=== PATIENT | male | born 1950 | race Caucasian/White ===

== ENCOUNTER 2022-03-13 08:46 | Outpatient (CLI) | payer MEDICARE, OTHER, SELFPAY ==
--- NOTE | ~2022-03-13 | CT_ITS ---
Noncontrast CT scan of the lumbar spine CLINICAL HISTORY: Low back pain TECHNIQUE: Axial noncontrast images of the lumbar spine was performed. Sagittal and coronal reformatt ed images were constructed. Dose reduction technique was used on this scan by utilizing automated exp osure control and iterative reconstruction technique. FINDINGS: No fracture identified. Minimal grade 1 retrolisthesis of L5 over S1 is present. At L1-L2, there is no disc bulge herniation. There is minimal facet arthropathy. No spinal canal sten osis or neural foraminal narrowing. At L2-L3, there is mild disc bulge. Facet joint arthropathy and ligamentum flavum hypertrophy contrib alfred to bilateral moderate thecal sac compression. There is mild right neural foraminal narrowing. Lef t neural foramen preserved. At L3-L4, there is mild disc bulge. There is minimal ligamentum flavum hypertrophy. No charlee spinal c anal stenosis. There is mild right neural foraminal narrowing. Left neural foramen preserved. At L4-L5, advanced degenerative disc narrowing, with disc bulge and facet joint/ligamentum flavum hyp ertrophy. No charlee spinal canal stenosis. There is moderate bilateral neural foraminal narrowing. At L5-S1, there is advanced degenerative disc narrowing, with osteophyte formation posteriorly but no significant disc bulge/herniation. No charlee spinal canal stenosis. There is moderate bilateral neura l foraminal narrowing. Paravertebral soft tissues are unremarkable. IMPRESSION: Mild degenerative spondylosis, as detailed above. Probable multifactorial moderate thecal sac fito vy L2-L3. Multilevel neural foraminal narrowing, as detailed above. Minimal grade 1 retrolisthesis of L5 over S1. Reviewed, dictated and finalized at [facility]. 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 Probable multifactorial moder ate thecal sac compression L2-L3. Multilevel neural foraminal narrowing, as det татьяна above. Minimal grade 1 retrolisthesis of L5 over S1.
== END 2022-03-13 08:47 | disposition home or self-care (01) ==
PROVIDERS: PCP Family Medicine; Visit Provider Nurse Practitioner Family
DX: M54.59 Other low back pain (principal); M43.06 Spondylolysis, lumbar region
CPT/HCPCS: 72131

== ENCOUNTER 2023-01-11 06:39 | Outpatient (CLI) | payer MEDICARE, OTHER, SELFPAY ==
[2023-01-11 07:48] LABS: INR 1.1; Prothrombin Time 14.5 Seconds (11.1-14.7)
== END 2023-01-11 06:40 | disposition home or self-care (01) ==
LOC: ANHLAB 06:42
PROVIDERS: PCP Family Medicine; Visit Provider Pain Medicine Pain Medicine
DX: Z79.01 Long term (current) use of anticoagulants (principal)
CPT/HCPCS: 36415; 85610

== ENCOUNTER → 2023-05-02 10:45 | Outpatient (CLI) | payer MEDICARE, OTHER, SELFPAY ==
--- NOTE | ~2023-05-02 | CT_ITS ---
CT Scan of the Chest without Contrast: Clinical Indication: Hemoptysis Technique: Contiguous sections were acquired throughout the chest without intravenous contrast. Dose reduction technique was used on this scan by utilizing automated exposure control and iterative recon struction technique. The dose-length product (DLP) was 366.54 mGy-cm. Findings: Questionable mildly enlarged right hilar lymph node present. No other lymphadenopathy identified. Cor onary artery calcifications are present. No aortic aneurysm. No pericardial effusion. Small to moderate layering right pleural effusion present. There is somewhat masslike consolidation in the right lower lobe measuring approximate 7.5 cm in diam eter, with focal central probable cavitation. There is a 3.0 x 2.0 cm lesion in the right upper lobe, with probable pseudocavitation and somewhat bubbly/semisolid appearance (axial image 41). Images through the upper abdomen reveal no abnormalities. Impression: 7.5 cm masslike consolidation right lower lobe with focal area of presumed cavitation or necrosis. Th is is suspicious for carcinoma, although neoplasm, or less likely, rounded atelectasis, could possibl y have a similar appearance. Correlate with patient's and hematology. Consider tissue sampling to est ablish histologic diagnosis versus possibly short-term follow-up CT after any appropriate acute inter lona therapy. 3.0 x 2.0 cm somewhat bubbly/pseudocavitation lesion in the right upper lobe. 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 Consider tissue sampling and/or PET/CT to further evaluate this lesion. Questionable mildly enlarged right hilar lymph node. Evaluation suboptimal without IV contrast, as we ll as the aforementioned right lower lobe masslike lesion extending towards the right hilum. Consider contrast-enhanced chest CT to further evaluate as indicated. Small to moderate right pleural effusion. Reviewed, dictated and finalized at [facility]. [employer]TER Impression: 7.5 cm masslike consolidation right lower lobe with focal area of presumed cavi tation or necrosis. This is suspicious for carcinoma, although neoplasm, or les s likely, rounded atelectasis, could possibly have a similar appearance. Correl ate with patient's and hematology. Consider tissue sampling to establish histol ogic diagnosis versus possibly short-term follow-up CT after any appropriate ac alfred interval therapy. 3.0 x 2.0 cm somewhat bubbly/pseudocavitation lesion in the right upper lobe. R adiographic appearance suggests possibly bronchoalveolar cell carcinoma. Consid er tissue sampling and/or PET/CT to further evaluate this lesion. Questionable mildly enlarged right hilar lymph node. Evaluation suboptimal with out IV contrast, as well as the aforementioned right lower lobe masslike lesion extending towards the right hilum. Consider contrast-enhanced chest CT to furt her evaluate as indicated. Small to moderate right pleural effusion.
== END ==
PROVIDERS: PCP Family Medicine; Visit Provider Family Medicine
DX: R04.2 Hemoptysis (principal); F17.200 Nicotine dependence, unspecified, uncomplicated; R91.8 Other nonspecific abnormal finding of lung field; R59.0 Localized enlarged lymph nodes; J90 Pleural effusion, not elsewhere classified
CPT/HCPCS: 71250

== ENCOUNTER 2023-05-04 09:50 | Outpatient (NON) | payer MEDICARE, OTHER, SELFPAY ==
[2023-05-09 23:42] LABS: Calprotectin, Stool 225 mcg/g
== END 2023-05-04 09:51 | disposition home or self-care (01) ==
LOC: ANHLAB 09:51
PROVIDERS: PCP Family Medicine; Visit Provider Family Medicine
DX: R19.5 Other fecal abnormalities (principal)
CPT/HCPCS: 83993

== ENCOUNTER 2023-06-27 12:41 | Outpatient (CLI) | payer MEDICARE, OTHER, SELFPAY ==
[2023-06-27 13:26] LABS: Hematocrit 37.8 % (42.0-52.0); Mean Corpuscular HGB Conc 31.7 g/dl (32-36); Mean Corpuscular Volume 88.1 fl (80-100); Mean Platelet Volume 11.1 fl (7.4-10.4); Platelet Count Result 662 k/mm3 (150-375); Red Blood Count 4.29 M/mm3 (4.6-6.20); Red Cell Distribution Width 16.4 % (11.5-14.5)
[2023-06-27 13:51] LABS: Prothrombin Time 23.7 Seconds (11.1-14.7)
[2023-06-27 13:52] LABS: Partial Thromboplastin Time 57.7 Seconds (22.3-36.8)
[2023-06-27 20:40] LABS: Basophils Absolute Manual 0.44 K/mm3 (0.0-0.1); Basophils Percent Manual 2 % (0-1); Eosinophils Percent Manual 5 % (0-4); Lymphocytes Absolute Manual 1.98 K/mm3 (1.1-4.5); Monocytes Absolute Manual 0.44 K/mm3 (0.1-0.90); Monocytes Percent Manual 2 % (3-9); Neutrophils Percent Manual 82 % (46-73); Total Cells Counted 100
[2023-06-27 20:41] LABS: Hypochromasia 1+; Platelet Estimate Increased (Adequate); Schistocytes None Seen
[2023-06-27 20:42] LABS: Anisocytosis 2+
== END 2023-06-27 12:42 | disposition home or self-care (01) ==
PROVIDERS: PCP Family Medicine; Visit Provider Surgery
DX: C34.90 Malignant neoplasm of unspecified part of unspecified bronchus or lung (principal)
CPT/HCPCS: 36415; 85025; 85610; 85730

== ENCOUNTER 2023-06-30 01:00 | Day surgery (SDC) | payer MEDICARE, OTHER, SELFPAY ==
--- NOTE | 2023-06-24 11:03 | PC.NURSE ---
Report to the Outpatient Waiting Room, entrance under the green pavilion located off [address], at time __0800 on date __06/30/23 . Planned Procedure Time: __1000 . Time changes happen often and if your time is changed the preop area will call you the afternoon before. - You and your visitor will be asked to self-screen and do not enter if you have any COVID symptoms. - A mask is optional within the hospital at this time. Patients may have clear liquids (water, carbonated beverages, clear teas, apple juice) until 3 hours prior to surgery( 7 am) with a maximum of 20 ounces. - No food from midnight until time of surgery - Infants may have breast milk until 4 hours before surgery, infant formula 6 hours prior to surgery. - Children will be allowed to drink immediately following surgery. If applicable, please bring a bottle or sippy cup to assist with drinking. Juice, water, soda, and popsicles are readily available. For infants on formula, please bring formula the day of surgery. Pacifiers are allowed. Take the following medications with a SIP of water the morning of surgery: __AMLODIPINE,,METOPROLOL DO NOT STOP ANY OF YOUR OTHER PRESCRIPTION MEDICATIONS PRIOR TO SURGERY ?EXCEPT THE FOLLOWING Medications to discontinue per physician ___PT STATES WAS TOLD TO HOLD ASPIRIN AND WARFARIN_LAST DOSE 06/24/23 Please no make-up, nail macedonian, hairspray, perfume, deodorant, or body powder the day of surgery. No jewelry (including any body piercings) or valuables the day of surgery, leave them at home. Please take a shower or bath the night before, or the morning of, surgery with an antibacterial soap. Wear comfortable, loose fitting clothing. Children are encouraged to wear pajamas. - Jewelry must be removed prior to entering the operating room. Rings and piercings that are not removed may be cut off. - The hospital will not accept responsibility for valuables. - Please leave all valuables, including medications, at home the day of surgery. If you are going home after surgery, a licensed pharmacy delivery driver must drive you home. - NO public transportation without another adult if you receive anesthesia. - We recommend that an adult stay with you for 24 hours following discharge. - We also recommend that you do not drive, make important decision, drink alcoholic beverages, or take any drugs that were not prescribed by your health care provider for at least 24 hours after your discharge time. Follow any additional instructions given to you from your surgeon. If you or anyone in your household have experienced Covid symptoms in the past week, please notify your surgeon or the nurse liaison at the phone number below for possible testing. Telephone instructions given to __PATIENT and asked if any additional questions and then verbalized understanding. Patient advised to call surgeon office or pre surgery nurse liaison [phone] if any additional questions.
[2023-06-24 11:13] VITALS: BMI 24.1
--- NOTE | ~2023-06-30 | XR_ITS ---
EXAMINATION: XR fl guide central line place INDICATION: Port-A-Cath insertion TECHNIQUE: A single intraoperative fluoroscopic image is submitted for review. Total fluoroscopic jina e was 13.9 seconds. COMPARISON: None available FINDINGS: Fluoroscopic image demonstrates a left subclavian Port-A-Cath coursing beyond the right med ial margin of the image. Please refer to procedure note for full details. IMPRESSION: 1. Please refer to procedure note for full details. Reviewed, dictated and finalized at location F.
--- NOTE | ~2023-06-30 | XR_ITS ---
EXAMINATION: XR chest port-a-cath/central INDICATION: Port-A-Cath insertion TECHNIQUE: Portable AP chest at 1022 hours COMPARISON: CT, 05/02/2023 FINDINGS: A left subclavian Port-A-Cath has been inserted which ends with this tip in the distal supe rior vena cava. There is no pneumothorax. There is a moderate size right pleural effusion. There are airspace opacities right mid and lower lung zone. The heart size is normal. IMPRESSION: 1. Left subclavian Port-A-Cath insertion, no pneumothorax. 2. Moderate size right pleural effusion. 3. Airspace opacities of the right mid and lower lung zones, likely malignancy, atelectasis, and pneu monia. Reviewed, dictated and finalized at location F. IMPRESSION: 1. Left subclavian Port-A-Cath insertion, no pneumothorax. 2. Moderate size right pleural effusion. 3. Airspace opacities of the right mid and lower lung zones, likely malignancy, atelectasis, and pneumonia.
--- NOTE | 2023-06-30 07:40 | PM.IMHP ---
H&P: HPI History of Present Illness Date/Time: 06/30/23 07:40 Chief Complaint: right lung cancer Narrative: The patient is a 72-year-old male presenting with stage IV right-sided lung cancer. The patient is going to chemo radiation. The patient is here for port placement. The patient denies any previous central venous catheterization. Review of Systems Review of Systems: All systems reviewed & are unremarkable except as noted in HPI and below PMFSH Past Medical History Medical History Change in stool Surgical History Surgical History S/P epidural steroid injection Family History Family History Mother Patient's mother is Father Patient's father is Social History Social History Smoking packs per day: 1 Smoking cigarettes per day: 20.0 Years smoked: 53 Smoking pack-years: 53.00 Smoking status: Former smoker Tobacco type: cigarettes Smoking end date: 05/14/23 Alcohol intake: never Substance use: never Substance use type: does not use Do You Feel Safe in your Home?: Yes Lack of Transportation: No Lack of Food: Never True Current Housing: I Have Housing Concerned About Future Housing: No Difficulty Paying Gas/Electric Bills: No Difficulty Paying for Meds: No Currently Unemployed: No Education: Trade/Vocational Certificate Difficulty w/ Childcare or Family Care: No Living arrangements: with family Spiritual care concerns: No Meds Home Medications and Allergies Home Medications Medication Instructions Recorded Confirmed Type amlodipine 5 mg tablet 5 mg PO QAM 04/26/23 06/28/23 History atorvastatin 80 mg tablet 80 mg PO DAILY 04/26/23 06/28/23 History lisinopril 20 mg tablet 20 mg PO QAM 04/26/23 06/28/23 History metoprolol succinate 50 mg 50 mg PO QAM 04/26/23 06/28/23 History tablet,extended release 24 hr warfarin 5 mg tablet 5 mg PO DAILY 04/26/23 06/28/23 History nicotine 7 mg/24 hr daily 1 patch transdermal DAILY 06/24/23 06/28/23 History transdermal patch omeprazole magnesium 20 mg 20 mg PO DAILY 06/24/23 06/28/23 History tablet,delayed release (Prilosec OTC) hydrocodone 5 mg-acetaminophen 325 2 tablet PO Q6H PRN pain #180 tabs 06/28/23 Rx mg tablet zolpidem 10 mg tablet (Ambien) 10 mg PO QHS #30 tabs 06/28/23 06/28/23 Rx medical powered mobility scooter #1 ea 06/29/23 Rx Allergies Allergy/AdvReac Type Severity Reaction Status Date / Time Tetanus Vaccines and Toxoid Allergy Unknown Rash, Verified 06/28/23 13:46 REDNESS AT SITE ADHESIVE TAPE Allergy Mild SKIN Uncoded 06/28/23 13:46 IRRITATION Exam Const: General: cooperative, comfortable, no acute distress and ill appearing Neck: Neck: normal visual inspection, full ROM and no lymphadenopathy Chest: Chest palpation & inspection: normal inspection of the chest Resp: Auscultation: diminished lung sounds Cardio: Rate: regular rate Rhythm: regular rhythm GI: Inspection: normal to inspection Assessment and Plan Assessment and plan (1) Stage 4 lung cancer: Qualifiers: Laterality: right Qualified Code(s): C34.91 - Malignant neoplasm of unspecified part of right bronchus or lung Code(s): C34.90 - Malignant neoplasm of unspecified part of unspecified bronchus or lung Status: Acute Assessment and Plan: will set up port placement in the operating room
[2023-06-30 08:10] VITALS: BP 85/55; PULSE 96; RESP 18; TEMP 36.2; O2SAT 96; BMI 23.9
--- NOTE | 2023-06-30 08:46 | WPDANESEPPF ---
Anes - Initial Pre Proc Eval Procedure: Operation Date: 06/30/23 10:00 Proposed Procedures p Insertion Wyatt Cath - Nirali Taylor MD Date/Time: 06/30/23 08:46 Surgeon: Nirali Taylor MD Pre Op Diagnosis: malig neoplasm right lung Patient Data Age: 72 Gender: M Height: 1.85 m Weight: 83.05 kg Allergies Allergy/AdvReac Type Severity Reaction Status Date / Time Tetanus Vaccines and Toxoid Allergy Unknown Rash, Verified 06/28/23 13:46 REDNESS AT SITE ADHESIVE TAPE Allergy Mild SKIN Uncoded 06/28/23 13:46 IRRITATION Home Medications Medication Instructions Recorded Confirmed Type amlodipine 5 mg tablet 5 mg PO QAM 04/26/23 06/28/23 History atorvastatin 80 mg tablet 80 mg PO DAILY 04/26/23 06/28/23 History lisinopril 20 mg tablet 20 mg PO QAM 04/26/23 06/28/23 History metoprolol succinate 50 mg 50 mg PO QAM 04/26/23 06/28/23 History tablet,extended release 24 hr warfarin 5 mg tablet 5 mg PO DAILY 04/26/23 06/28/23 History nicotine 7 mg/24 hr daily 1 patch transdermal DAILY 06/24/23 06/28/23 History transdermal patch omeprazole magnesium 20 mg 20 mg PO DAILY 06/24/23 06/28/23 History tablet,delayed release (Prilosec OTC) hydrocodone 5 mg-acetaminophen 325 2 tablet PO Q6H PRN pain #180 tabs 06/28/23 Rx mg tablet zolpidem 10 mg tablet (Ambien) 10 mg PO QHS #30 tabs 06/28/23 06/28/23 Rx medical powered mobility scooter #1 ea 06/29/23 Rx Patient hx anesthesia problems: none Family hx anesthesia problems: none Results Review: All pre-operative results and documents have been reviewed as part of the pre-operative evaluation. [facility] Past Medical History Medical History Change in stool Surgical History Surgical History S/P epidural steroid injection Family History Family History Mother Patient's mother is Father Patient's father is Social History Social History Smoking packs per day: 1 Smoking cigarettes per day: 20.0 Years smoked: 53 Smoking pack-years: 53.00 Smoking status: Former smoker Tobacco type: cigarettes Smoking end date: 05/14/23 Alcohol intake: never Substance use: never Substance use type: does not use Do You Feel Safe in your Home?: Yes Lack of Transportation: No Lack of Food: Never True Current Housing: I Have Housing Concerned About Future Housing: No Difficulty Paying Gas/Electric Bills: No Difficulty Paying for Meds: No Currently Unemployed: No Education: Trade/Vocational Certificate Difficulty w/ Childcare or Family Care: No Living arrangements: with family Spiritual care concerns: No Anes - Eval Final PreProcedure Day of Procedure 06/30/23 08:46 Patient weight: normal Heart: regular rate and rhythm Lungs: clear to auscultation Airway: Mallampati scale class II Neurological: alert and oriented Last oral intake: >/= 8 hours ASA classification: III Emergent: no Anesthetic plan: proceed Anesthesia type and monitoring: general GIVS and standard monitoring Results Review: All pre-operative results and documents have been reviewed as part of the pre-operative evaluation. Informed Consent: The patient's anesthetic plan and its attendant risks and benefits were discussed with the patient/family/POA. Questions were solicited and answers provided to the satisfaction of the patient/family/POA.
[2023-06-30] MEDS: LACTATED RINGERS 1,000 ML 30 ML IV CONT (08:50)
--- NOTE | 2023-06-30 09:03 | SUR.PREOP ---
0845- Notified Dr. Cordon patient sustained a fall this AM and has soft BP 80's over 50's. Per Dr. Cordon bolus LR 500ML's in pre-op and will proceed. 902- Coagulation elevated and redraw sent to lab and notified Dr. Taylor awaiting results. Per Dr. Taylor will proceed with surgery no matter the results of blood draw.
[2023-06-30] MEDS: KETOROLAC 15 MG/ML VIAL (*BKC) IV PUSH (09:04)
[2023-06-30 09:22] LABS: INR 1.9; Prothrombin Time 22.6 Seconds (11.1-14.7)
[2023-06-30 09:23] LABS: Partial Thromboplastin Time 51.4 Seconds (22.3-36.8)
--- NOTE | 2023-06-30 09:33 | WPDHPUPDATE1 ---
History and Physical Update Update Date/Time: 06/30/23 09:33 History and Physical has been reviewed, including an updated exam of the patient. There are NO changes in the patient's condition. Risks, benefits, and alternatives have been discussed and questions answered. Patient agrees to proceed with procedure.
[2023-06-30] MEDS: ceFAZolin 2 GM/D5W 50 ML 2 GM/50 ML BAG IVPB (09:37)
[2023-06-30] MEDS: BUPIVACAINE/EPINEPHRINE 0.5% 30 ML VIAL INFILTRATE (10:03)
[2023-06-30] MEDS: HEPARIN SODIUM, PORCINE 10,000 UNITS/10 ML VIAL 4000 UNITS IV PUSH (10:04)
[2023-06-30] MEDS: HEPARIN SODIUM 5,000 UNITS/ML VIAL 5000 UNITS IRRIGATION (10:06)
--- NOTE | 2023-06-30 10:10 | W.PM.PROC2 ---
Procedure Note - Detailed Date of Procedure 06/30/23 Pre-op Diagnosis malig neoplasm right lung Post-op Diagnosis Same Procedure Performed placement of left subclavian venous access device under fluoroscopic guidance Surgeon Nirali Taylor MD Anesthesia MAC and Local Indications 72-year-old male with right lung cancer requiring chemo radiation Findings first stick L SCV Description of Procedure Patient was brought into the operating room and placed in the supine position. After adequate induction of mac anesthesia, the patient was prepped and draped in normal sterile fashion. Time-out was then done to verify the patient's identity, as well as the procedure being performed. I began by making a small incision in the left chest, I then gained access into the left subclavian vein with an 18 gauge needle. I then placed the guidewire into the vein and confirmed placement via fluoroscopic guidance. I then locally anesthetized the area in the left chest. I then enlarged the incision around the guidewire including making a subcutaneous pocket inferiorly to allow placement of the port itself. I then placed a dilating sheath over the guidewire into the left subclavian vein via sterile Seldinger technique. This was once again done and confirmed via fluoroscopic guidance. I then removed the dilator and the guidewire, now just leaving the sheath in the vein. I then fed the previously flushed catheter into the left subclavian vein under fluoroscopic guidance. At approximately 25 cm, the catheter was noted to be near the atrial caval junction. I then peeled away the sheath, now just leaving the catheter in the vein. I then was able to easily draw and flush from the catheter. The catheter was cut to fit and attached to the port itself. The port was placed into the previously made subcutaneous pocket and sutured in with 0 Ethibond suture. Final fluoroscopic view showed the termination of the catheter at the atrial caval junction with a nice smooth curvature back to the port itself. I was able to gain access to the port with a Langford needle and was able to easily draw and flush from the port. I then flushed 4 cc of a final heparin flush into the port. The incision was closed with 3 0 Vicryl suture in the subcutaneous tissue and the skin was closed with 4 O Monocryl subcuticular suture. Dermabond was then placed on wound. The patient tolerated the procedure well and will be sent to the recovery room in stable condition. Implants L SCV VAD Estimated Blood Loss 5 Drains No Packing No Pathology None sent Complications No immediate complications Condition Stable Disposition PACU [facility] Billing Surgery - Charge Forward: Surgery Billing
[2023-06-30 10:17] VITALS: BP 83/54; PULSE 82; O2SAT 93
[2023-06-30 10:30] VITALS: BP 98/57; PULSE 97; O2SAT 92
[2023-06-30 10:45] VITALS: BP 111/67; PULSE 98
== END 2023-06-30 11:15 | disposition home or self-care (01) ==
PROVIDERS: PCP Family Medicine; Visit Provider Surgery
PROC: (CPT 36561; principal; 2023-06-30 10:00)
DX: C34.91 Malignant neoplasm of unspecified part of right bronchus or lung (principal); Z79.01 Long term (current) use of anticoagulants; Z87.891 Personal history of nicotine dependence
CPT/HCPCS: 36561; 36415; 77001; 85610; 85730; C1788; J0690; J1644; J1885; J2371; J2704; J3010; J7030; J7120

== ENCOUNTER 2023-07-07 10:54 | Outpatient (CLI) | payer MEDICARE, SELFPAY ==
[2023-06-28 13:56] VITALS: BMI 24.7
--- NOTE | 2023-06-28 13:57 | PC.NURSE ---
Pre Radiology instructions Report to the outpatient lulu viramontes on date _07/07/23____ at time _11:00AM for procedure Time: _1:00PM___ YOU MAY BE MONITORED AT HOSPITAL FOR UP TO 4 HOURS AFTER YOUR PROCEDURE. A visitor will be allowed to accompany the patient into the hospital. You and your visitor will be asked to self-screen and do not enter if you have any COVID symptoms. A mask is OPTIONAL within the hospital. Patients are to have no food or drink 6 hours prior to procedure time Driving will be restricted after the procedure, you must have a person to drive you home. Labs will be drawn in preop area and once reviewed, you will be taken to radiology area for procedure. When the procedure is completed, you will be taken to outpatient where you will be monitored for several hours. You may have one visitor in this area. Other than holding anti-coagulants, patient may take other medication(s) as scheduled. Prior to your appointment date patients are instructed to hold anti-coagulants after discussing with ordering provider to stop. If unable to discontinue anti-coagulants please notify radiologist. ? No aspirin or warfarin (Coumadin) for 7 days prior to the procedure. ? No clopidogrel (Plavix), ticagrelor (Brilinta), prasugrel (Effient) or dabigatran (Pradaxa) for 5 days prior to the procedure. ? No rivaroxaban (Xarelto), apixaban (Eliquis), dipyridamole (Aggrenox or Persantine) or cilostazol (Pletal) for 2 days prior to the procedure. Medications to discontinue per physician: __COUMADIN 7 DAYS PRE-OP Date to take last dose: __06/29/23 Please leave all valuables, including medications, at home the day of procedure. The hospital will not accept responsibility for valuables. Wear comfortable, loose fitting clothing.? Follow any additional instructions given to you from ordering provider. Telephone instructions given to ___PATIENT and asked if any additional questions and then verbalized understanding. Patient advised to call scheduling provider office or registration scheduling [phone] if any additional questions.
[2023-07-07] VITALS (7 sets, daily range): BP systolic 114–135; BP diastolic 70–92; PULSE 70–91; RESP 16–20; TEMP 36.1; O2SAT 97
--- NOTE | ~2023-07-07 | US_ITS ---
EXAMINATION: US thoracentesis DATE: 07/07/2023 14:25 INDICATION: pleural effusion TECHNIQUE: The procedure and its risks, benefits, and alternatives were discussed with the patient. P otential risks discussed included bleeding, infection, and pneumothorax. The patient understood the r isks and agreed to proceed. The skin was prepped and draped in sterile fashion. 1% lidocaine was used for local anesthesia. Under ultrasound guidance, a 5 Fr catheter with trochar was advanced into the right pleural effusion. Fluid was aspirated. The catheter was removed, and a dressing was applied. Th ere were no immediate complications. FINDINGS: Ultrasound images demonstrate a right pleural effusion and the catheter within the fluid. IMPRESSION: 1. Successful ultrasound-guided thoracentesis yielding 1000 mL of red-brown fluid. Reviewed, dictated and finalized at location A. IMPRESSION: 1. Successful ultrasound-guided thoracentesis yielding 1000 mL of red-brown fl uid.
--- NOTE | ~2023-07-07 | XR_ITS ---
EXAMINATION: [id number] DATE: 07/07/2023 14:13 INDICATION: Right pleural effusion status post thoracentesis. TECHNIQUE: A single frontal view of the chest was obtained. COMPARISON: Chest CT 05/02/2023, chest single view 06/30/2023 FINDINGS: There is volume loss of right hemithorax. There is a large right pleural effusion. There ar e airspace opacities in right lung base. No pneumothorax. The heart size is normal. There is a left s ubclavian port with tip in superior vena cava. IMPRESSION: 1. Large right pleural effusion with improvement status post thoracentesis. 2. Airspace opacities at right lung base, likely a combination of malignancy and atelectasis. Pneumon ia cannot be excluded. Reviewed, dictated and finalized at location A. IMPRESSION: 1. Large right pleural effusion with improvement status post thoracentesis. 2. Airspace opacities at right lung base, likely a combination of malignancy an d atelectasis. Pneumonia cannot be excluded.
[2023-07-07 12:09] LABS: Mean Platelet Volume 11.3 fl (7.4-10.4); Platelet Count Result 512 k/mm3 (150-375)
[2023-07-07 12:11] LABS: INR 1.8; Prothrombin Time 21.9 Seconds (11.1-14.7)
== END 2023-07-07 16:11 | disposition home or self-care (01) ==
PROVIDERS: PCP Family Medicine; Referring Provider Internal Medicine Hematology & Oncology; Visit Provider Radiology Diagnostic Radiology
DX: J90 Pleural effusion, not elsewhere classified (principal)
CPT/HCPCS: 32555; 36415; 77387; 77412; 85049; 85610; 86480; 88108; 88305

== ENCOUNTER 2023-07-11 09:30 | Outpatient (RCR) | payer MEDICARE, OTHER, SELFPAY ==
--- NOTE | 2023-06-17 08:53 | PHAR ---
Addendum entered by David Warner, PharmD 07/04/23 12:07: Biosimilar substitution per protocol: NEULASTA will be subbed to FULPHILA (PEGFILGRASTIM-JMDB) (BIOCON). Patient will be notified of substitution by nurse during education or at their first treatment. Original Note: Biosimilar substitution per protocol: NEULASTA will be subbed to FYLNETRA(PEGFILGRASTIM-PBBK) (AMNEAL). Patient will be notified of substitution by nurse during education or at their first treatment.
[2023-06-17 17:15] LABS: Hepatitis B Surface Antigen Negative (Negative)
[2023-06-20 12:54] LABS: NIL 0.01 IU/mL; Quantiferon TB Plus, 1T INDETERMINATE (NEGATIVE)
[2023-07-09 15:08] LABS: NIL 0.02 IU/mL; Quantiferon TB Plus, 1T NEGATIVE (NEGATIVE)
[2023-07-11 08:29] LABS: Basophils Percent Auto 0.2 % (0.2-1.2); Hematocrit 33.4 % (42.0-52.0); Hemoglobin 10.8 g/dL (14.0-18.0); Immature Granulocyte Absolute 0.22 K/mm3 (0.00-0.031); Immature Granulocyte Percent A 0.8 % (0-0.5); Lymphocytes Percent Auto 2.7 % (18.3-44.2); Mean Corpuscular HGB Conc 32.3 g/dl (32-36); Mean Corpuscular Volume 86.5 fl (80-100); Mean Platelet Volume 11.4 fl (7.4-10.4); Monocytes Absolute Auto 0.4 K/mm3 (0.1-0.6); Monocytes Percent Auto 1.7 % (2.6-8.5); Neutrophils Absolute Auto 24.5 K/mm3 (1.3-6.7); Neutrophils Percent Auto 94.6 % (45.5-73.1); Platelet Count Result 561 k/mm3 (150-375); Red Blood Count 3.86 M/mm3 (4.6-6.20); Red Cell Distribution Width 16.8 % (11.5-14.5); White Blood Count 25.9 K/mm3 (4.5-10.0)
[2023-07-11 08:35] LABS: Blood Urea Nitrogen 16 mg/dL (8-26); Carbon Dioxide 26 mmol/L (22-30); Chloride 103 mmol/L (98-109); Estimated Glomerular Filt Rate > 60; Glucose 191 mg/dL (70-105); Potassium 4.2 mmol/L (3.5-4.9); Sodium 140 mmol/L (138-146)
[2023-07-11 09:13] LABS: Alanine Aminotransferase 29 U/L (6-50); Albumin Level 2.9 g/dL (3.5-5.1); Alkaline Phosphatase 592 U/L (38-126); Anion Gap 6 mmol/L (4-12); Aspartate Amino Transferase 51 U/L (17-59); Bilirubin,Total 0.6 mg/dL (0.2-1.3); Blood Urea Nitrogen 18 mg/dL (9-20); Calcium 10.7 mg/dL (8.4-10.2); Carbon Dioxide 26 mmol/L (22-30); Chloride 106 mmol/L (98-107); Estimated Glomerular Filt Rate > 60; Glucose 196 mg/dL (65-110); Magnesium 1.9 mg/dL (1.6-2.3); Potassium 4.1 mmol/L (3.4-5.0); Sodium 138 mmol/L (137-145)
[2023-07-11 09:20] VITALS: BP 133/69; PULSE 91; RESP 18; TEMP 36.4; O2SAT 95
[2023-07-11] MEDS: PEMBROLIZUMAB 200 MG in SODIUM CHLORIDE 0.9% IV 100 ML 216 MG IVPB (09:55)
[2023-07-11] MEDS: PALONOSETRON HCL 0.25 MG/5 ML VIAL IV PUSH (10:43)
[2023-07-11] MEDS: FAMOTIDINE 20 MG/2 ML VIAL IV PUSH (10:43)
[2023-07-11] MEDS: diphenhydrAMINE HCl INJ 50 MG/ML VIAL 25 MG IV PUSH (10:45)
[2023-07-11] MEDS: OLANZapine DISPERTAB 5 MG PO (10:47)
[2023-07-11] MEDS: FOSAPREPITANT DIMEGLUMINE 150 MG in SODIUM CHLORIDE 0.9% IV 150 ML 300 MG IVPB (10:48)
[2023-07-11 15:49] VITALS: BP 107/59
[2023-07-11] MEDS: HEPARIN SODIUM LOCK FLUSH 500 UNITS/5 ML SYRINGE IV PUSH (15:50)
--- NOTE | 2023-07-12 15:31 | PHAR ---
Calhoun stimulating factor was held due to absolute neutrophil count over 8,000 per standing order. ANC over 20K
== END 2023-07-18 08:21 ==
LOC: AMCINF 09:30
PROVIDERS: PCP Family Medicine; Visit Provider Internal Medicine Hematology & Oncology
DX: Z51.11 Encounter for antineoplastic chemotherapy (principal); C34.11 Malignant neoplasm of upper lobe, right bronchus or lung; J91.0 Malignant pleural effusion; I10 Essential (primary) hypertension; I25.10 Atherosclerotic heart disease of native coronary artery without angina pectoris; I25.2 Old myocardial infarction; I48.91 Unspecified atrial fibrillation; E78.5 Hyperlipidemia, unspecified; Z95.5 Presence of coronary angioplasty implant and graft; Z87.891 Personal history of nicotine dependence
CPT/HCPCS: 36415; 80047; 80053; 83735; 85025; 86480; 87340; 96367; 96368; 96375; 96413; 96415; 96417; A9270; J1100; J1200; J1453; J2469; J7040; J7060; J9045; J9267; J9271

== ENCOUNTER 2023-07-14 00:46 | Inpatient (IN) | payer MEDICARE, OTHER, SELFPAY ==
[2023-07-14] VITALS (21 sets, daily range): BP systolic 79–124; BP diastolic 45–94; PULSE 101–142; RESP 17–26; TEMP 35.9–36.3; O2SAT 90–95
--- NOTE | ~2023-07-14 | XR_ITS ---
Clinical Indication: Shortness of breath, lung cancer PA and lateral views of the chest: Comparison: 07/07/2023 Findings: Left-sided Mediport is in place. Moderate to large right pleural effusion is similar to manuel or exam. Minimal haziness left lung base is nonspecific.. Cardiomediastinal silhouette is within nor mal limits. Bones and soft tissues are unremarkable. Impression: Moderate to large right pleural effusion, unchanged. Minimal haziness left lung base, nonspecific. Correlate for minimal pulmonary edema/atelectasis, or p ossibly pneumonia. Left-sided Mediport in place. Reviewed, dictated and finalized at location M. Impression: Moderate to large right pleural effusion, unchanged. Minimal haziness left lung base, nonspecific. Correlate for minimal pulmonary e rica/atelectasis, or possibly pneumonia. Left-sided Mediport in place.
--- NOTE | ~2023-07-14 | CT_ITS ---
Clinical Indication: Shortness of breath, abdominal pain CT Scan of the Chest, Abdomen, and Pelvis with Contrast: Technique: Contiguous sections were acquired throughout the chest, abdomen, and pelvis after intraven ous administration of 100 cc of Omnipaque 350. Dose reduction technique was used on this scan by adilene kaye automated exposure control and iterative reconstruction technique. The dose-length product (DL P) was 1743.32 mGy-cm. COMPARISON: 05/02/2023 Findings: There is no evidence of any significant mediastinal, hilar or axillary lymphadenopathy. No pulmonary embolus identified. No aortic aneurysm.. No pericardial effusion. Esophagus is mildly dilated and flu id-filled. No left pleural effusion. Left lung is clear, aside from minimal dependent atelectatic change, less l ikely pneumonia. Large right pleural effusion is present. There is complete right lower lobe atelectasis with associat ed probable centrally necrotic right infrahilar/right lower lobe mass measuring approximately 7.0 x 6 .1 x 9.3 cm (series 5 image 13, series 606 image 72 for example). This lesion probably invades throug h the diaphragm into the adjacent liver. There are 2 smaller broad-based present metastatic lesions i n the right lung base, best seen on series 5 images 12 and 18, measuring 1.7 cm and 3.2 cm in size re spectively. There is an additional smaller adjacent metastasis at the medial right lung base measurin g 2.5 cm (series 5 image 33).. There is partial right upper lobe atelectatic change, though underlyin g mass not completely excluded. The liver, spleen, pancreas, gallbladder, adrenals and kidneys are otherwise within normal limits. Th ere are atherosclerotic calcifications of the aorta. No lymphadenopathy. There is marked distention of the stomach, with questionable intraluminal mass at the gastric antrum/ first portion of the duodenum (axial image 57 for example).. There is inflammatory change and fluid t racking into the right lower quadrant and along the right paracolic gutter, extending probably from t he pancreatic head region. Urinary bladder is unremarkable. Prostate gland and seminal vesicles are unremarkable. There is infil tration of presacral soft tissues, nonspecific. Impression: Dominant right lower lateral/right infrahilar neoplastic mass is progressed from prior exam, now isma uring approximately 7.0 x 6.1 x 9.3 cm in size, with invasion through the diaphragm into the adjacent liver. There are multiple pleural-based metastases at the right lung base, as detailed above, not cl early present on prior noncontrast CT. Large right pleural effusion with complete right lower lobe atelectasis. Heterogeneous mass/nodule se en in the right upper lobe previously is not well appreciated on the current exam, though it may be o bscured by atelectatic change and effusion. Mild left basilar atelectatic change versus possibly pneumonia. No pulmonary embolus. Marked gastric distention and dilated esophagus. Suspected intraluminal/mucosal mass at the gastric a ntrum/first portion of the duodenum. Metastatic lesion or other mass is possible, resulting in appear ance suggestive of gastric outlet obstruction. Endoscopy or upper GI series advised to further evalua te. Fluid and inflammatory change at the right lower quadrant tracking along the right paracolic gutter t owards the pancreatic head. Appearance suggests acute pancreatitis. Other inflammatory process is not excluded, though there is no distinct bowel wall thickening. Normal appendix present. Reviewed, dictated and finalized at location M. Impression: Dominant right lower lateral/right infrahilar neoplastic mass is progressed fro m prior exam, now measuring approximately 7.0 x 6.1 x 9.3 cm in size, with inva vy through
--- NOTE | 2023-07-14 01:55 | ECG_ITS ---
SEE SCANNED COPY FOR CONFIRMED REPORT MTDD
--- NOTE | 2023-07-14 02:09 | PC.NURSE ---
Pt to xray at this time.
[2023-07-14 02:10] LABS: Basophils Absolute Auto 0.1 K/mm3 (0.0-0.1); Basophils Percent Auto 0.3 % (0.2-1.2); Hematocrit 35.9 % (42.0-52.0); Hemoglobin 11.5 g/dL (14.0-18.0); Immature Granulocyte Absolute 0.92 K/mm3 (0.00-0.031); Immature Granulocyte Percent A 2.2 % (0-0.5); Lymphocytes Absolute Auto 0.28 K/mm3 (0.9-3.2); Lymphocytes Percent Auto 0.7 % (18.3-44.2); Mean Corpuscular Hemoglobin 27.8 pg (26-34); Mean Corpuscular Volume 86.7 fl (80-100); Mean Platelet Volume 12.4 fl (7.4-10.4); Monocytes Absolute Auto 0.2 K/mm3 (0.1-0.6); Monocytes Percent Auto 0.5 % (2.6-8.5); Neutrophils Absolute Auto 40.4 K/mm3 (1.3-6.7); Neutrophils Percent Auto 96.3 % (45.5-73.1); Platelet Count Result 461 k/mm3 (150-375); Red Blood Count 4.14 M/mm3 (4.6-6.20); Red Cell Distribution Width 17.3 % (11.5-14.5); White Blood Count 41.9 K/mm3 (4.5-10.0)
[2023-07-14] MEDS: ONDANSETRON INJ 4 MG/2 ML VIAL IV PUSH (02:17)
[2023-07-14] MEDS: MORPHINE SULFATE (*CRX) 4 MG/ML INJ IV PUSH ×3 (02:18→05:05)
[2023-07-14 02:24] LABS: Magnesium 1.9 mg/dL (1.6-2.3)
[2023-07-14 02:26] LABS: Alanine Aminotransferase 61 U/L (6-50); Albumin Level 3.1 g/dL (3.5-5.1); Alkaline Phosphatase 560 U/L (38-126); Anion Gap 8 mmol/L (4-12); Aspartate Amino Transferase 134 U/L (17-59); Bilirubin,Total 0.9 mg/dL (0.2-1.3); Blood Urea Nitrogen 64 mg/dL (9-20); Calcium 9.3 mg/dL (8.4-10.2); Carbon Dioxide 26 mmol/L (22-30); Chloride 104 mmol/L (98-107); Estimated CRCL calculation 45 ml/min; Estimated Glomerular Filt Rate 46; Glucose 186 mg/dL (65-110); Potassium 5.3 mmol/L (3.4-5.0); Sodium 138 mmol/L (137-145)
[2023-07-14 02:29] LABS: Anisocytosis 1+; Ovalocytes 1+; Platelet Estimate Increased (Adequate); Poikilocytosis 1+
[2023-07-14 02:30] LABS: Burr Cells 1+; Schistocytes Rare
[2023-07-14 02:33] LABS: INR 1.4; Prothrombin Time 18.3 Seconds (11.1-14.7)
[2023-07-14 02:33] LABS: Alveolar/Arterial O2 Gradient 53.7 mmHg; Base Excess ABG -1.2 mEq/l (+/-2.0); Fractional Inspired Oxygen 21 %; HCO3 ABG 21.9 mEq/l (22.0-26.0); Oxygen Content ABG 14.7 %vol (16.0-22.0); Oxyhemoglobin 87.9 % THb (90.0-100.0); PCO2 ABG 31.4 mmHg (35.0-45.0); PO2 ABG 58.4 mmHg (80.0-100.0); PO2 FiO2 Ratio Arterial Blood 2.78 %; Total Hemoglobin 11.9 g/dL (12.0-18.0); pH ABG 7.461 (7.350-7.450)
[2023-07-14 02:34] LABS: Partial Thromboplastin Time 38.2 Seconds (22.3-36.8)
[2023-07-14 02:34] LABS: Modified Allen's Test Pass; Site Drawn RIGHT RADIAL
[2023-07-14 02:44] LABS: Procalcitonin 0.1 ng/mL
[2023-07-14 02:47] LABS: NT Pro B Type Natriuretic Pept 741 pg/mL (19.9-100)
[2023-07-14 03:22] LABS: Lactic Acid Reflex 3.2 mmol/L (0.7-2.0)
[2023-07-14 03:42] LABS: Influenza A QL RT-PCR Negative (Negative); Influenza B QL RT-PCR Negative (Negative); RSV RNA, RT-PCR Negative (Negative); SARS-CoV-2 RNA PCR Negative (Negative)
--- NOTE | 2023-07-14 05:25 | ED.GENADULT ---
HPI - General Adult General Chief complaint: Shortness of Breath/Dyspnea Stated complaint: pain with inspiration, right side pain Time Seen by Provider: 07/14/23 01:56 History of Present Illness HPI narrative: patient 72-year-old gentleman who presents emergency department with chief complaint of shortness of breath. Abdominal pain patient has prior history of atrial fibrillation he patient's history of stage IV lung cancer and has had pleural effusions on the right side the patient has had chemo on Tuesday and last radiation was in the morning patient reports that he has got weakness in his body reports that he has abdominal discomfort and pain shortness of breath. The patient reports that this got significantly worse the patient recently had about a L of fluid removed from his right lung Related Data Home Medications Medication Instructions Recorded Confirmed amlodipine 5 mg tablet 5 mg PO QA 04/26/23 07/12/23 atorvastatin 80 mg tablet 80 mg PO DAILY 04/26/23 07/12/23 lisinopril 20 mg tablet 20 mg PO QA 04/26/23 07/12/23 metoprolol succinate 50 mg 50 mg PO [facility] 04/26/23 07/12/23 tablet,extended release 24 hr warfarin 5 mg tablet 5 mg PO DAILY 04/26/23 07/12/23 omeprazole magnesium 20 mg 20 mg PO DAILY 06/24/23 07/12/23 tablet,delayed release (Prilosec OTC) ondansetron 8 mg disintegrating 8 mg PO Q8H PRN Nausea And Vomiting 07/05/23 07/12/23 tablet prochlorperazine maleate 10 mg 10 mg PO Q6H PRN Nausea And 07/05/23 07/12/23 tablet (Compazine) Vomiting Allergies Allergy/AdvReac Type Severity Reaction Status Date / Time Tetanus Vaccines and Toxoid Allergy Unknown Rash, Verified 07/12/23 09:36 REDNESS AT SITE ADHESIVE TAPE Allergy Mild SKIN Uncoded 07/12/23 09:36 IRRITATION Review of Systems Review of Systems: A 10 system review of systems was completed on the patient and is negative except for what is stated in the HPI. Nursing and ancillary documentation was reviewed. [facility] Past Medical History Medical History Change in stool Surgical History Surgical History S/P epidural steroid injection Family History Family History Mother Patient's mother is Father Patient's father is Social History Social History Smoking packs per day: 1 Smoking cigarettes per day: 20.0 Years smoked: 53 Smoking pack-years: 53.00 Smoking status: Former smoker Tobacco type: cigarettes Smoking end date: 05/14/23 Alcohol intake: never Substance use: never Substance use type: does not use Do You Feel Safe in your Home?: Yes Lack of Transportation: No Lack of Food: Never True Current Housing: I Have Housing Concerned About Future Housing: No Difficulty Paying Gas/Electric Bills: No Difficulty Paying for Meds: No Currently Unemployed: No Education: Trade/Vocational Certificate Difficulty w/ Childcare or Family Care: No Living arrangements: with family Spiritual care concerns: No Exam Narrative: GENERAL: Well-appearing, well-nourished, and in no acute distress. HEAD: Normocephalic, atraumatic. EYES: PERRLA and EOMI. ENT: Nares clear, no rhinorrhea or epistaxis. Mucous membranes moist. NECK: Supple. CHEST: diminished breath sounds in the right. No respiratory distress. HEART: Regular rate and rhythm. No murmur heard. Normal peripheral pulses. ABDOMEN: Soft, nontender, nondistended, normal active bowel sounds. EXTREMITIES: Normal range of motion. No edema. SKIN: Warm, dry, no rash. NEURO: No focal deficits. Alert and oriented x3. PSYCH: Normal mood and affect. Course Vital Signs Vital signs: Vital Signs Temperature 36.3 C L 07/14/23 00:47 Pulse Ra
[2023-07-14 05:50] LABS: Troponin I 0.012 ng/mL (0.000-0.034)
[2023-07-14 06:04] LABS: Reflex Lactic Acid Yes or No Add Lactic
[2023-07-14] MEDS: dilTIAZem HCl INJ 25 MG/5 ML VIAL 10 MG IV PUSH (06:20)
[2023-07-14 06:28] LABS: Appearance Urine Cloudy (Clear); Bacteria Urine None Seen /hpf; Bilirubin Urine 1+ (Negative); Blood Urine Negative (Negative); Color Urine Dark Yellow (Yellow); Glucose Urine UA Negative (Negative); Granular Casts Urine Present /lpf; Hyaline Casts Urine Present /lpf; Ketones Urine Trace mg/dL (Negative); Leukocyte Esterase Ur Trace LEU/UL (Negative); Nitrate Urine Negative (Negative); Non Pathogenic Casts >20; Protein Urine 1+ mg/dL (Negative); RBC Urine 0-2 /hpf (0-2); Spermatozoa Urine Present; Squamous Epithelial Cell Urine Occasional /hpf (Few)
[2023-07-14 06:37] LABS: Specific Grav Ur 1.039 (1.001-1.035)
[2023-07-14 06:41] LABS: Add Urine Microscopic? YES
[2023-07-14] MEDS: CEFEPIME 2 GM/NS 50 ML 2 GM/50 ML BAG IVPB (06:52)
[2023-07-14] MEDS: SODIUM CHLORIDE 0.9% IV 1,000 ML 125 ML IV CONT (06:52)
[2023-07-14 06:56] LABS: Lactic Acid 2.7 mmol/L (0.7-2.0)
[2023-07-14 07:08] LABS: Troponin I 0.013 ng/mL (0.000-0.034)
--- NOTE | 2023-07-14 08:24 | ADMGEN ---
This patient, Doyle Garcia, was admitted to IMU Room 205-02 at 0824. Patient/family oriented to hospital policies and general routines including ID bracelet, bed and alarms, visiting hours, pain management, procedures, bathroom and other care routines, personal items, smoking policy, room service/diet, and visiting hours. Information on how to activate the Rapid Response Team has been discussed. Patient/Family are encouraged to report perceived risks to care and to ask questions if they do not understand what they are told or what they should do.
[2023-07-14] MEDS: VANCOMYCIN 2,000 MG/NS 500 ML 2,000 MG/500 ML BAG 250 MG IVPB (08:45)
[2023-07-14 08:48] LABS: MRSA (PCR) NOT DETECTED (NOT DETECTE)
[2023-07-14 10:28] LABS: Troponin I 0.016 ng/mL (0.000-0.034)
--- NOTE | 2023-07-14 11:08 | PM.IMHP ---
H&P: HPI History of Present Illness Date/Time: 07/14/23 11:08 Chief Complaint: Shortness of breath Narrative: 72yo male with stage IV lung cancer on palliative treatment here for shortness of breath. Patient with stage IV NSCLC, squamous subtype [id number]. PET imaging shows disease confined to the thorax with likely malignant pleural effusion. MRI brain was negative (not available here to see). He has painful pleural disease invading into the right 8th rib that has caused pathologic fracture. Port placed 06/29. Patient being seen by radiation oncology and currently undergoing palliative radiation therapy to the Right 8th rib + adjacent/invading soft tissue pleural-based metastasis. Patient also followed by Dr Miller. Patient underwent right thoracentesis 07/07/23 with removal of 1000mL of red-brown fluid. Patient had improvement initially with removal of the fluid but pain worsened again. He completed his XRT treatment on 07/13/23. He has started chemotherapy on 07/11/23. He continues to have pain in the right chest and new weakness in the right arm and leg. No hx of CVA. He has no appetite and has lost about 50# since diagnosis earlier this year. No nausea or vomiting at home but did have nausea here since admission. He has been having SOB but no cough. He does not use O2 at home. Did have urine hesitancy but no dysuria or hematuria. Stephenson placed here. He has AFib on Coumadin but off since last well. Has chronic low back pain from spinal stenosis with no change in severity. No diarrhea but has constipation. No bowel movement since 07/07/2023. He presented to the ED for evaluation. In the emergency room, patient was hemodynamically stable. He was tachycardic with a heart rate 120 range. White count was 42K with left shift but white count has been elevated over the past month. INR 1.4. ABG showing 7.46/31/58 on room air. Potassium was 5.3 with a BUN of 64 and creatinine 1.5 which is above his baseline. Lactic acid was 3.2. AST was 130, ALT 61 and alk-phos 560. BNP was 740. PCT was 0.1. Urinalysis showed trace ketones, trace LE with 11-20 white cells. MRSA nasal swab was negative. Sperm noted in the urinalysis. Influenza, RSV and COVID PCR were negative. Troponin was 6.5 initially but negative over the next 3 draws. CTA of the chest, abdomen and pelvis showed progression of the right lower lobe mass that invades through the diaphragm into the adjacent liver with multiple pleural based Mets noted. Also with large right pleural effusion with complete right lower lobe atelectasis. He has marked gastric distension and dilated esophagus with suspected intraluminal mass at the gastric antrum with suggestion of gastric outlet obstruction. Please see report for other findings. Patient was treated with morphine and Zofran. He was given diltiazem for tachycardia. He was started on cefepime and vancomycin after cultures obtained. He was admitted for further care. Spoke with per patient's wishes. She mentions that the right sided weakness is more chronic. Review of Systems Review of Systems: All systems reviewed & are unremarkable except as noted in HPI and below PMFSH Past Medical History Medical History (Updated 07/14/23 @ 12:33 by Guillermo Kraft MD) CAD (coronary artery disease) Change in stool Essential hypertension Hyperlipidemia Paroxysmal A-fib Spinal stenosis Stage 4 lung cancer Surgical History Surgical History (Updated 07/14/23 @ 12:23 by Guillermo Kraft MD) Hx of left knee surgery S/P epidural steroid injection Family History Family History Mother Patient's mother is Father Patient's father is Social History Social History Smoking packs per day: 1 Smoking cigarettes per day: 20.0 Years smoked: 53 Smoking pack-years: 53.00 Smoking status: F
[2023-07-14 13:16] LABS: Basophils Absolute Auto 0.1 K/mm3 (0.0-0.1); Basophils Percent Auto 0.3 % (0.2-1.2); Hematocrit 32.1 % (42.0-52.0); Immature Granulocyte Absolute 0.38 K/mm3 (0.00-0.031); Immature Granulocyte Percent A 1.4 % (0-0.5); Lymphocytes Absolute Auto 0.45 K/mm3 (0.9-3.2); Lymphocytes Percent Auto 1.7 % (18.3-44.2); Mean Corpuscular HGB Conc 31.2 g/dl (32-36); Mean Corpuscular Hemoglobin 27.9 pg (26-34); Mean Corpuscular Volume 89.7 fl (80-100); Mean Platelet Volume 12.9 fl (7.4-10.4); Monocytes Absolute Auto 0.2 K/mm3 (0.1-0.6); Monocytes Percent Auto 0.6 % (2.6-8.5); Neutrophils Absolute Auto 25.5 K/mm3 (1.3-6.7); Platelet Count Result 362 k/mm3 (150-375); Red Blood Count 3.58 M/mm3 (4.6-6.20); Red Cell Distribution Width 17.3 % (11.5-14.5); White Blood Count 26.6 K/mm3 (4.5-10.0)
[2023-07-14 13:46] LABS: Troponin I 0.016 ng/mL (0.000-0.034)
--- NOTE | 2023-07-14 13:55 | PDONCCN ---
HPI - Date of Consult Date/Time: 07/14/23 13:55 Requesting Physician: Marielena Henson MD Primary Care Provider: Courtney Mcknight MD - Consult Narrative Reason for consult: Metastatic non-small cell lung cancer Narrative: Doyle Garcia is a 72 year old male with recent diagnosis of stage IV non-small cell lung cancer with malignant pleural effusion status post right upper lobe lung mass biopsy done on June 03, 2023 showed squamous cell carcinoma. He started palliative chemotherapy with carboplatin Taxol and Keytruda cycle 1 on July 11, 2023. He also completed palliative radiation therapy to the right 8th rib on June 28, 2023. He came into the hospital with increasing shortness of breath, loss of appetite and loss of weight. CTA of the chest, abdomen and pelvis showed progression of the right lower lobe mass that invades through the diaphragm into the adjacent liver with multiple pleural based Mets noted. Also with large right pleural effusion with complete right lower lobe atelectasis. He has marked gastric distension and dilated esophagus with suspected intraluminal mass at the gastric antrum with suggestion of gastric outlet obstruction. Patient seems to be quite uncomfortable and has lost significant amount of weight. Review of Systems - Review of Systems All systems reviewed & are unremarkable except as noted in HPI and [facility] Medical History: Medical History (Last Updated 07/14/23 @ 12:20 by Guillermo Kraft MD) CAD (coronary artery disease) Change in stool Essential hypertension Hyperlipidemia Paroxysmal A-fib Spinal stenosis Stage 4 lung cancer Surgical History: Surgical History (Last Updated 07/14/23 @ 12:23 by Guillermo Kraft MD) Hx of left knee surgery S/P epidural steroid injection Family History: Family History (Last Reviewed 07/14/23 @ 05:28 by Guillermo Donato MD) Mother Patient's mother is Father Patient's father is - Social History Social History: Social History (Last Reviewed 07/14/23 @ 05:28 by Guillermo Donato MD) Alcohol Use: Alcohol intake: never Substance Use: Substance use: never Substance use type: does not use Others: Spiritual care concerns: No Living Arrangements: Living arrangements: with family Smoking Status: Smoking status: Former smoker Tobacco type: cigarettes Smoking end date: 04/04/23 Smoking Pack-years: Smoking packs per day: 1 Smoking cigarettes per day: 20.0 Years smoked: 50 Smoking pack-years: 50.00 Social Determinants of Health: Do You Feel Safe in your Home?: Yes Has the Lack of Transportation Kept You From Medical Appointments or From Getting Medications?: No Within the Past 12 Months, Were You Worried Whether Your Food Would Run Out Before You Got Money to Buy More?: Never True What is Your Housing Situation Today?: I Have Housing Are You Worried That in the Next 2 Months, You May Not Have Your Own Housing to Live In?: No Do You Have Trouble Paying Your Heating Or Electricity Bill?: No Do You Have Trouble Paying For Medicines?: No Are You Currently Unemployed and Looking for Work?: No Highest Level of Education Completed: Trade/Vocational Certific Do You Have Trouble With Childcare or the Care of a Family Member?: No Exam - Vital Signs Vital Signs - 24 hr 07/14/23 00:47 07/14/23 00:57 07/14/23 00:57 Temperature 36.3 C L 36.3 C L Pulse Rate 124 H 116 H 127 H Respiratory Rate 19 22 H Blood Pressure 124/94 H 124/94 H Pulse Oximetry 93 92 Oxygen Delivery Room Air Oxygen Flow Rate 07/14/23 01:26 07/14/23 02:09 07/14/23 03:39 Temperature Pulse Rate 124 H Respiratory Rate Blood Pressure Pulse Oximetry 94 93 Oxygen Delivery Room Air Nasal Cannula Oxygen Flow Rate 2 07/14/23 01:31 07/14/23 04:45 07/14/23 05:31 Temperature
[2023-07-14] MEDS: LIDOCAINE 5% PATCH 1 PATCH TRANSDERM (13:56)
[2023-07-14] MEDS: MORPHINE SULFATE (*CRX) 2 MG/ML INJ IV PUSH (13:57)
[2023-07-14] MEDS: PANTOPRAZOLE SODIUM IV 40 MG VIAL IV PUSH (13:57)
[2023-07-14] MEDS: SODIUM CHLORIDE 0.9% IV 500 ML IV CONT ×2 (13:57→16:32)
[2023-07-14 14:29] LABS: Thyroid Stimulating Hormone Reflex 0.608 uIU/mL (0.465-4.68)
--- NOTE | 2023-07-14 16:51 | WPDGICN ---
Assessment and Plan Assessment and plan (1) Stage 4 lung cancer: Qualifiers: Laterality: right Qualified Code(s): C34.91 - Malignant neoplasm of unspecified part of right bronchus or lung Code(s): C34.90 - Malignant neoplasm of unspecified part of unspecified bronchus or lung Status: Acute Assessment and Plan: unfortunately rapid progression of disease, he is quite uncomfortable noted oncology consult, plan now is hospice (2) Gastric outlet obstruction: Code(s): K31.1 - Adult hypertrophic pyloric stenosis Status: Acute Assessment and Plan: could be from malignancy, he is quite sick to undergo egd and anesthesia agree with palliative care now (3) GENNA (acute kidney injury): Code(s): N17.9 - Acute kidney failure, unspecified Status: Acute (4) Pneumonia: Code(s): J18.9 - Pneumonia, unspecified organism Status: Acute Assessment and Plan: on treatment (5) Pleural effusion: Code(s): J90 - Pleural effusion, not elsewhere classified Status: Acute GI Consult Note Consult date/time: 07/14/23 16:51 Reason for consult: metastatic lung cancer, anorexia, GOO HPI: Doyle Garcia is a 72 year old male with recent diagnosis of stage IV non-small cell lung cancer with malignant pleural effusion status post right upper lobe lung mass biopsy done on June 03, 2023 showed squamous cell carcinoma.? He started palliative chemotherapy with carboplatin Taxol and Keytruda cycle 1 on July 11, 2023.? He also completed palliative radiation therapy to the right 8th rib on June 28, 2023.? He came into the hospital with increasing shortness of breath, loss of appetite and loss of weight. CTA of the chest, abdomen and pelvis reviewed and showed progression of the right lower lobe mass that invades through the diaphragm into the adjacent liver with multiple pleural based Mets noted.? Also with large right pleural effusion with complete right lower lobe atelectasis.? He has marked gastric distension and dilated esophagus with suspected intraluminal mass at the gastric antrum with suggestion of gastric outlet obstruction.??He is quite uncomfortable and can not find a position to relax. Review of Systems Constitutional: Constitutional: Reports lethargy and Reports weakness Eyes: Eyes: Denies blurry vision ENT: Reports Normal hearing present Cardiovascular: Cardiovascular: Denies chest pain Respiratory: Respiratory: Reports dyspnea on exertion Gastrointestinal: Gastrointestinal: Reports nausea and Reports vomiting Musculoskeletal: Musculoskeletal: Denies neck pain Integumentary/Breasts: Skin/Breast: Denies rash Neurologic: Denies Abnormal speech present Psychiatric: Psychiatric: Reports anxiety [facility] Past Medical History Medical History (Updated 07/14/23 @ 13:59 by Ryley Miller MD) CAD (coronary artery disease) Change in stool Essential hypertension Hyperlipidemia Paroxysmal A-fib Spinal stenosis Stage 4 lung cancer Surgical History Surgical History (Updated 07/14/23 @ 13:59 by Ryley Miller MD) Hx of left knee surgery S/P epidural steroid injection Family History Family History Mother Patient's mother is Father Patient's father is Social History Social History Smoking packs per day: 1 Smoking cigarettes per day: 20.0 Years smoked: 50 Smoking pack-years: 50.00 Smoking status: Former smoker Tobacco type: cigarettes Smoking end date: 04/04/23 Alcohol intake: never Substance use: never Substance use type: does not use Do You Feel Safe in your Home?: Yes Lack of Transportation: No Lack of Food: Never True Current Housing: I Have Housing Concerned About Future Housing: No Difficulty Paying Gas/Electric Bills: No Difficulty Paying
--- NOTE | 2023-07-14 18:21 | PM.DS ---
DS: Admitting Diagnosis Discharge Date 07/14/23 Admitting Diagnosis Shortness of breath DS: Discharge Diagnosis Discharge Diagnosis (1) Pneumonia: Code(s): J18.9 - Pneumonia, unspecified organism Status: Acute (2) Hyperkalemia: Code(s): E87.5 - Hyperkalemia Status: Acute (3) Pleural effusion: Code(s): J90 - Pleural effusion, not elsewhere classified Status: Acute (4) Gastric outlet obstruction: Code(s): K31.1 - Adult hypertrophic pyloric stenosis Status: Acute (5) GENNA (acute kidney injury): Code(s): N17.9 - Acute kidney failure, unspecified Status: Acute (6) Stage 4 lung cancer: Qualifiers: Laterality: right Qualified Code(s): C34.91 - Malignant neoplasm of unspecified part of right bronchus or lung Code(s): C34.90 - Malignant neoplasm of unspecified part of unspecified bronchus or lung Status: Acute (7) Paroxysmal A-fib: Code(s): I48.0 - Paroxysmal atrial fibrillation Status: Acute (8) Spinal stenosis: Code(s): M48.00 - Spinal stenosis, site unspecified Status: Acute DS: Summary Hospital Course Reason for hospitalization: 72yo male with stage IV lung cancer on palliative treatment here for shortness of breath.? Please see H&P for details. Hospital Course: Patient presented with shortness of breath and persistent right-sided pain. Imaging shows advancement and spread of his stage IV lung cancer. His white count was markedly elevated but has been so over the past month. Could not completely exclude pneumonia so IV antibiotics were started after appropriate cultures collected. Urinalysis was suspicious for UTI. Hyperkalemia noted probably related to the acute kidney injury. He was on lisinopril and oral potassium which we held. Acute kidney injury also could be related to Lasix and lisinopril. He has reaccumulation of his pleural effusion which most likely chronic given this is a malignant effusion. CT also reveals probably a gastric mass resulting in gastric and esophageal distension concerning for gastric outlet obstruction. GI was consulted for possible EGD. Patient became tachycardic and hypotensive. Tachycardia is related to his AFib with RVR. He was given fluid boluses with minimal benefit. It was felt the elevated Troponin was a lab error. LFTs elevated due to the invasion of the liver from the cancer. Spoke with Oncology who felt patient is now hospice appropriate. Hospice consult obtained and patient was moved to inpatient hospice care on 07/15/23 Status at Discharge Cognitive/behavioral status at discharge: Critical Time Spent with Patient Time attestation: Total time spent providing and/or coordinating discharge services: 35 minutes Time spent: Greater than 30 minutes Exam Narrative: AF 97.4 90/63 120 21 91% 3L Gen - ill-appearing male in no acute respiratory distress who is nontoxic-appearing lying semi recumbent in bed HEENT - normocephalic. Atraumatic. Pupils pinpoint. Extraocular motions intact. Sclera clear and anicteric. Nares patent. Oropharynx was clear. No oral lesions. Dry mucous membranes. Tongue was midline with blackish staining. Palate charles symmetrically. No facial asymmetry. Neck - neck was supple. No dominant adenopathy, thyromegaly or masses Chest - right lung mid and lower lung field with decreased BS. nml RR CV - irregularly irregular Abd - soft, NT/ND, +BS - Stephenson secured draining clear yellow urine Ext - trace bilateral LE edema. Negative Homans. Neuro - patient is alert and appropriate. Right UE and LE weakness. Psych - normal mood and affect Skin - pale and cannon looking DS: Data Data Completed and Pending Labs on day of discharge: Labs from last 24 hours 07/14/23 07/14/23 07/14/23 13:03 09:35 07:32 WBC 26.6 H RBC 3.58 L Hgb 10.0 L Hct 32.1 L MCV 89.7 MCH 27.9 MCHC 31.2 L RDW 17.3 H Plt
[2023-07-15 02:16] LABS: Alanine Aminotransferase 50 U/L (6-50); Albumin Level 2.4 g/dL (3.5-5.1); Alkaline Phosphatase 424 U/L (38-126); Anion Gap 13 mmol/L (4-12); Aspartate Amino Transferase 113 U/L (17-59); Bilirubin,Total 0.7 mg/dL (0.2-1.3); Blood Urea Nitrogen 81 mg/dL (9-20); Calcium 8.4 mg/dL (8.4-10.2); Carbon Dioxide 18 mmol/L (22-30); Chloride 106 mmol/L (98-107); Estimated CRCL calculation 34 ml/min; Estimated Glomerular Filt Rate 33; Glucose 223 mg/dL (65-110); Magnesium 2.4 mg/dL (1.6-2.3); Phosphorus 5.8 mg/dL (2.5-4.5); Potassium 5.4 mmol/L (3.4-5.0); Sodium 137 mmol/L (137-145)
== END 2023-07-14 18:20 | disposition hospice, inpatient (51) | DRG 194 ==
LOC: ANHED 06:43 → ANHIMU 11:22
PROVIDERS: Admitting Provider Internal Medicine; Emergency Provider Emergency Medicine; PCP Family Medicine; Visit Provider Internal Medicine
DX: J18.9 Pneumonia, unspecified organism (principal); C34.31 Malignant neoplasm of lower lobe, right bronchus or lung; C78.7 Secondary malignant neoplasm of liver and intrahepatic bile duct; C79.51 Secondary malignant neoplasm of bone; J91.0 Malignant pleural effusion; K31.1 Adult hypertrophic pyloric stenosis; M84.48XA Pathological fracture, other site, initial encounter for fracture; N17.9 Acute kidney failure, unspecified; E87.5 Hyperkalemia; I25.10 Atherosclerotic heart disease of native coronary artery without angina pectoris; I10 Essential (primary) hypertension; E78.5 Hyperlipidemia, unspecified; I48.0 Paroxysmal atrial fibrillation; M48.00 Spinal stenosis, site unspecified; Z20.822 Contact with and (suspected) exposure to COVID-19; Z79.01 Long term (current) use of anticoagulants; Z51.5 Encounter for palliative care
CPT/HCPCS: 36415; 36600; 71046; 71275; 74177; 77336; 77387; 77412; 80047; 80053; 81001; 82805; 83605; 83735; 83880; 84100; 84145; 84443; 84484; 85025; 85610; 85730; 87040; 87086; 87637; 87641; 93005; 96367; 96368; 96374; 96375; 96376; 96413; 96415; 96417; 99285; A9270; C9113; J0692; J1100; J1200; J1453; J2270; J2405; J2469; J3370; J7030; J7040; J7060; J9045; J9267; J9271; Q9967

== ENCOUNTER 2023-07-14 18:21 | HOS | payer OTHER, MEDICARE, SELFPAY ==
[2023-07-14 19:48] VITALS: PULSE 144; RESP 26
[2023-07-14] MEDS: MORPHINE SULFATE INJ (*CRX) 50 MG in SODIUM CHLORIDE 0.9% IV 95 ML IV CONT (19:48)
[2023-07-14] MEDS: PROCHLORPERAZINE EDISYLATE 10 MG/2 ML VIAL IV PUSH (20:27)
[2023-07-14] MEDS: methylPREDNISolone SOD SUCC 125 MG VIAL 60 MG IV PUSH (20:54)
[2023-07-14] MEDS: LORazepam INJ (*CRX) 2 MG/ML VIAL 1 MG IV PUSH (21:43)
[2023-07-14] MEDS: MORPHINE SULFATE (*CRX) 2 MG/ML INJ IV PUSH (21:43)
[2023-07-14 22:09] VITALS: PULSE 132; RESP 30
[2023-07-14] MEDS: GLYCOPYRROLATE INJ (*SP) 0.2 MG/ML VIAL 0.1 MG IV PUSH (22:17)
--- NOTE | 2023-07-15 16:03 | PM.IMHP ---
H&P: HPI History of Present Illness Date/Time: 07/15/23 16:03 Chief Complaint: uncontrolled pain Narrative: 72 y/o m with known lung adenoCA was admitted to acute care 07/13 due to right side chest pain and dyspnea. Pneumonia was suspected. Despite antibiotics and oxygen, he continued to experience uncontrolled pain and dyspnea and developed afib with RVR. CT reviewed widespread liver, bone, and node metastases. Because of this, Mr. Garcia opted for inpatient hospice services for symptom management. Review of Systems Review of Systems: ROS unobtainable: Yes unobtainable due to medical condition [facility] Past Medical History Medical History (Updated 07/15/23 @ 16:10 by Vinod Nunez MD) CAD (coronary artery disease) Change in stool Essential hypertension Hyperlipidemia Paroxysmal A-fib Spinal stenosis Stage 4 lung cancer Surgical History Surgical History Hx of left knee surgery S/P epidural steroid injection Family History Family History Mother Patient's mother is Father Patient's father is Social History Social History Smoking packs per day: 1 Smoking cigarettes per day: 20.0 Years smoked: 50 Smoking pack-years: 50.00 Smoking status: Former smoker Tobacco type: cigarettes Smoking end date: 04/04/23 Alcohol intake: never Substance use: never Substance use type: does not use Do You Feel Safe in your Home?: Yes Lack of Transportation: No Lack of Food: Never True Current Housing: I Have Housing Concerned About Future Housing: No Difficulty Paying Gas/Electric Bills: No Difficulty Paying for Meds: No Currently Unemployed: No Education: Trade/Vocational Certificate Difficulty w/ Childcare or Family Care: No Living arrangements: with family Spiritual care concerns: No Meds Home Medications and Allergies Home Medications Medication Instructions Recorded Confirmed Type amlodipine 5 mg tablet 5 mg PO QAM 04/26/23 07/14/23 History atorvastatin 80 mg tablet 80 mg PO DAILY 04/26/23 07/14/23 History lisinopril 20 mg tablet 20 mg PO QAM 04/26/23 07/14/23 History metoprolol succinate 50 mg 50 mg PO QAM 04/26/23 07/14/23 History tablet,extended release 24 hr warfarin 5 mg tablet 5 mg PO DAILY 04/26/23 07/14/23 History omeprazole magnesium 20 mg 20 mg PO DAILY 06/24/23 07/14/23 History tablet,delayed release (Prilosec OTC) ondansetron 8 mg disintegrating 8 mg PO Q8H PRN Nausea And Vomiting 07/05/23 07/14/23 History tablet prochlorperazine maleate 10 mg 10 mg PO Q6H PRN Nausea And 07/05/23 07/14/23 History tablet (Compazine) Vomiting medical powered mobility scooter #1 ea 07/12/23 07/14/23 Rx azithromycin 250 mg tablet 250 mg PO DAILY 07/14/23 07/14/23 History dexamethasone 4 mg tablet 4 mg PO BID 07/14/23 07/14/23 History furosemide 20 mg tablet 20 mg PO DAILY 07/14/23 07/14/23 History lidocaine-prilocaine 2.5 %-2.5 % 1 applic transdermal DAILY PRN Pain 07/14/23 07/14/23 History topical cream oxycodone 10 mg tablet 10 mg PO Q8H PRN Pain, Severe 07/14/23 07/14/23 History potassium chloride 20 mEq 20 meq PO DAILY 07/14/23 07/14/23 History tablet,extended release Allergies Allergy/AdvReac Type Severity Reaction Status Date / Time Tetanus Vaccines and Toxoid Allergy Unknown Rash, Verified 07/14/23 11:09 REDNESS AT SITE ADHESIVE TAPE Allergy Mild SKIN Uncoded 07/12/23 09:36 IRRITATION Vital Signs Vital Signs - 24 hr 07/14/23 19:48 07/14/23 22:09 Pulse Rate 144 H 132 H Respiratory Rate 26 H 30 H Exam Narrative: prior to my exam Assessment and Plan Assessment and plan (1) Palliative care encounter: Code(s): Z51.5 - Encounter for palliative care Status: Acute Assessment and Johan
--- NOTE | 2023-07-15 16:10 | PM.DDS ---
Discharge Summary Date and Time Date of : 07/15/23 Time of : 00:25 Provider Pronounced By: Celsa jackson Probable Cause of Probable Cause of : stage 4 lung cancer Summary Hospital Course: Admitted to inpatient hospice service for control of pain and dyspnea. Medications titrated to comfort. Mr. Garcia peacefully. Additional Data Confirmation of as documented by pronouncing clinician: Pupillary Reflex, Palpable Pulses, Response to Stimuli, Heart Tones and Breath Sounds Name of Provider Notified: Enrique Time Provider Notified: 00:38 Steam Frame Operator Notified: Yes Date [facility] Notified of : 07/15/23 Time [facility] Notified of : 00:58
== END 2023-07-15 00:25 | disposition expired | DRG 951 ==
LOC: ANHIMU 20:04 → ANH3MEDSUR 23:33
PROVIDERS: Admitting Provider Internal Medicine; PCP Family Medicine; Visit Provider Internal Medicine
DX: Z51.5 Encounter for palliative care (principal); C34.91 Malignant neoplasm of unspecified part of right bronchus or lung; C78.7 Secondary malignant neoplasm of liver and intrahepatic bile duct; C77.9 Secondary and unspecified malignant neoplasm of lymph node, unspecified; C79.51 Secondary malignant neoplasm of bone; K31.1 Adult hypertrophic pyloric stenosis; N17.9 Acute kidney failure, unspecified; I25.10 Atherosclerotic heart disease of native coronary artery without angina pectoris; I10 Essential (primary) hypertension; I48.0 Paroxysmal atrial fibrillation; E78.5 Hyperlipidemia, unspecified
CPT/HCPCS: A9270; J0780; J1596; J2060; J2270; J2919